=== PATIENT | female | born 1945 | race Caucasian/White ===

== ENCOUNTER 2016-09-01 22:47 | Emergency (ER) | payer MEDICARE ==
[~2016-09-01] VITALS: Ht 162.6 cm; Wt 150.0 kg
[~2016-09-01 22:47] MED LIST: AMBI10TA PO; ASPI81TA82 PO; BUME1TAB PO; DETR4CAP PO; DUONI NEB; GABA300C3 PO; HYDR-3580 PO; OMEP20TA39 PO; POTA20IN3 PO; TAB-TAB PO; TRAM50 PO; VENTAER INH; XANA0.5T PO
[2016-09-01 22:54] VITALS: BP 203/84; PULSE 83; RESP 18; TEMP 98.3; O2SAT 98
[2016-09-02] VITALS (7 sets, daily range): BP systolic 19–218; BP diastolic 60–87; PULSE 64–78; RESP 20; O2SAT 92–98
[2016-09-02] MEDS ORDERED: AMBI10TA PO (00:23)
[2016-09-02] MEDS ORDERED: TRAM50TA PO (00:23)
[2016-09-02] MEDS ORDERED: ONCETAB7 PO (00:23)
[2016-09-02] MEDS ORDERED: POTA-163 PO (00:23)
[2016-09-02] MEDS ORDERED: DIOV160T6 PO (00:23)
[2016-09-02] MEDS ORDERED: cloNIDine HCL 0.2 MG TAB PO ONE (00:30)
--- NOTE | 2016-09-02 00:49 | PD ---
HPI Chief Complaint: Hypertension Time Seen by Provider: 00:18 Travel History International Travel<30 days: No Contact w/Intl Traveler<30days: No Traveled to known affect area: No History of Present Illness HPI 70-year-old female with history of HTN on 2 drugs here with complaint of HTN. Patient states that despite being compliant with her to home antihypertensives her blood pressure has been elevated. She does not have any chest pain or shortness of breath. She does have a mild dull frontal headache. PFSH Past Medical History Arthritis: Yes Asthma: No Autoimmune Disease: No Blood Disorders: No Anxiety: No Depression: No Heart Rhythm Problems: No Cancer: No Cardiac Catheterization: No Cardiovascular Problems: No High Cholesterol: No Chemotherapy: No Chest Pain: Yes Congestive Heart Failure: No COPD: No Cerebrovascular Accident: No Diabetes: No Diminished Hearing: No Endocrine: No Gastrointestinal Disorders: Yes (HX GERD) GERD: No Glaucoma: No Genitourinary: No Headaches: No Hepatitis: No Hiatal Hernia: No Hypertension: Yes Immune Disorder: No Kidney Stones: No Musculoskeletal: Yes (ARTHRITIS) Neurologic: No Psychiatric: Yes (CLAUSTRAPHOBIC) Reproductive: No Respiratory: Yes (SOB/ WHEEZING, HEMOPTYSIS, COPD PT USES A CPAP AT HOME) Integumentary: Yes (CELLULITIS BI LAT LOW EXTR) Migraines: No Myocardial Infarction: No Radiation Therapy: No Renal Failure: No Seizures: No Sickle Cell Disease: No Sleep Apnea: No Thyroid Disease: No Ulcer: No Tetanus Vaccination: > 5 Years Influenza Vaccination: Yes ?: Not Menopausal: Yes Past Surgical History Abdominal Surgery: No AICD: No Appendectomy: No Arteriovenous Shunt: No Cardiac Surgery: No Cholecystectomy: No Coronary Artery Bypass Graft: No Ear Surgery: No Endocrine Surgery: No Eye Surgery: No Genitourinary Surgery: No Gynecologic Surgery: Yes (RIGHT BREAST CALCIFICATION NEGATIVE.) Insulin Pump: No Joint Replacement: Yes (LEFT KNEE) Oral Surgery: Yes (TONSILLECTOMY) Pacemaker: No Thoracic Surgery: No Other Surgery: Yes Social History Alcohol Use: Yes (RARELY) Tobacco Use: No Substance Use: No Allergies-Medications (Allergen,Severity, Reaction): Coded Allergies: Adhesives (Unverified Allergy, Intermediate, SKIN TEARS, 11/12/13) Bactrim (Verified Allergy, Unknown, hives, 09/02/16) Reported Meds & Prescriptions Reported Meds & Active Scripts Active Reported Hydrocodone-Acetaminophen 7.5-325 mg Tab 1 Tab PO Q4H PRN Symbicort Inh (Budesonide/Formoterol Fumarate) 80-4.5 Mcg/Act Aero 2 Puff INH Q12HR Valsartan 320 Mg Tab 320 Mg PO DAILY Bumetanide 1 Mg Tab 1 Mg PO DAILY Verapamil ER (Verapamil HCl) 120 Mg Tab 120 Mg PO BID Lasix (Furosemide) 40 Mg Tab 40 Mg PO DAILY Synthroid (Levothyroxine Sodium) 25 Mcg Tab 25 Mcg PO DAILY Calcium 600 with Vitamin D (Calcium Carbonate-Cholecalciferol) 600-400 mg-Unit Tab 1 Tab PO DAILY Aspirin 81 Mg Chew 81 Mg CHEW DAILY Diovan (Valsartan) 160 Mg Tab Mg PO BID Once Daily (Multivitamin) 1 Each Tablet PO DAILY Tramadol (Tramadol HCl) 50 Mg Tab 100 Mg PO Q8H PRN Potassium Chloride ER (Potassium Chloride) 20 Meq Tab 40 Meq PO DAILY Ambien (Zolpidem Tartrate) 10 Mg Tab 10 Mg PO HS PRN Review of Systems Except as stated in HPI: all other systems reviewed are Neg Physical Exam Narrative GENERAL: Well-appearing female in no acute distress SKIN: Focused skin assessment warm/dry. HEAD: Normocephalic. EYES: No scleral icterus. No injection or drainage. ENT: Mucous membranes pink and moist. NECK: Supple CARDIOVASCULAR: Regular rate and rhythm. No murmur appreciated. Hypertensive RESPIRATORY: No accessory muscle use. Clear to auscultation. Breath sounds equal bilaterally. GASTROINTESTINAL: Obese MUSCULOSKELETAL: Normal gait NEUROLOGICAL: Awake and alert. Normal speech. PSYCHIATRIC: Appropriate mood and affect; insight and judgment normal. Data Data Last Documented VS Vital Signs Date Time Temp Pulse Resp B/P Pulse Ox O2 Delivery O2 Flow Rate FiO2 09/02/16 02:46 67 139/60 09/02/16 02:40 97 Room Air 09/02/16 00:26 20 09/01/16 22:54 98.3 Orders Clonidine (Catapres) (09/02/16 00:30) Iv Access Insert/Monitor (09/02/16 01:46) Ecg Monitoring (09/02/16 01:46) Oximetry (09/02/16 01:46) Sodium Chloride 0.9% Flush (Ns Flush) (09/02/16 02:00) Enalaprilat Inj (Vasotec Inj) (09/02/16 02:00) [facility] Medical Decision Making Medical Screen Exam Complete: Yes Emergency Medical Condition: Yes Medical Record Reviewed: Yes Differential Diagnosis 70-year-old female with history of HTN on 2 drugs with complaint of HTN. Differential includes essential hypertension, medication nonadherence, accelerated hypertension, hypertensive urgency less likely. Narrative Course Patient given dose of oral clonidine. Repeat blood pressure unchanged. Patient given 1.25 mg of Vasotec IV with significant improvement of her blood pressure. Patient will be discharged home with adjustment of her verapamil dose Diagnosis Primary Impression: Accelerated hypertension Referrals: Primary Care Physician 3 days Additional Instructions: Increase verapamil from 120 mg twice daily to 160 mg twice daily. Follow-up with care provider on Sunday for blood pressure recheck. Med/Other Pt SpecificInfo: Prescription(s) given Scripts Verapamil 80 Mg [id number] Mg PO BID 30 Days Ref 0 Prov:Kayleigh Shaikh MD 09/02/16 Disposition: DISCHARGE HOME Condition: Stable Kayleigh Shaikh MD Sep 02, 2016 00:49
[2016-09-02] MEDS ORDERED: FURO1TAB60 PO (00:56)
[2016-09-02] MEDS ORDERED: CALC1TAB87 PO (00:56)
[2016-09-02] MEDS ORDERED: SYMB80AE INH (00:56)
[2016-09-02] MEDS ORDERED: ASPI81CH CHEW (00:56)
[2016-09-02] MEDS ORDERED: VALS1TAB70 PO (00:56)
[2016-09-02] MEDS ORDERED: BUME1TAB PO (00:56)
[2016-09-02] MEDS ORDERED: HYDR-3580 PO (00:56)
[2016-09-02] MEDS ORDERED: SYNT25TA PO (00:56)
[2016-09-02] MEDS ORDERED: VERA1TAB9 PO (00:56)
[2016-09-02] MEDS ORDERED: SODIUM CHLORIDE 0.9% FLUSH 10 ML FLUSH IV FLUSH PRN (02:00)
[2016-09-02] MEDS ORDERED: ENALAPRILAT 2.5 MG/2 ML VIAL IV PUSH ONE (02:00)
[2016-09-02] MEDS ORDERED: VERA80TA PO (02:51)
[2016-09-02] MEDS ORDERED: ACETAMINOPHEN 325 MG TAB PO ONE (04:00)
== END 2016-09-02 04:44 | disposition home or self-care (01) ==
LOC: NEPE 22:47
DX: I10 Essential (primary) hypertension (principal); J44.9 Chronic obstructive pulmonary disease, unspecified
CPT/HCPCS: 96374

== ENCOUNTER → 2017-03-07 | Outpatient (CLI) | payer MEDICARE ==
[~2017-03-07] MED LIST changes: +ASPI-516 CHEW; -ASPI81TA82 PO; +CALC1TAB87 PO; -DETR4CAP PO; +DIOV160T6 PO; -DUONI NEB; +FURO1TAB60 PO; -GABA300C3 PO; -OMEP20TA39 PO; +ONCETAB7 PO; +POTA-163 PO; -POTA20IN3 PO; +SYMB80AE INH; +SYNT25TA PO; -TAB-TAB PO; -TRAM50 PO; +TRAM50TA PO; +VALS1TAB70 PO; -VENTAER INH; +VERA1TAB9 PO; +VERA80TA PO; -XANA0.5T PO
== END ==
LOC: HRSP 12:57
PROVIDERS: ATTEND Internal Medicine Pulmonary Disease
DX: J44.9 Chronic obstructive pulmonary disease, unspecified (principal)
CPT/HCPCS: 94060; 94620; 94726; 94729